=== PATIENT | female | born 1950 | race Caucasian/White ===

== ENCOUNTER → 2018-08-24 | Outpatient (CLI) | payer MEDICARE, SELFPAY ==
[2014-11-22 00:11] VITALS: BMI 33.6
[2018-08-24 12:15] LABS: CPK Total, Creatine Kinase 207 U/L (26-192)
== END | disposition home or self-care (01) ==
LOC: LAB 11:32
PROVIDERS: Family Provider Family Medicine; PCP Family Medicine; Referring Provider Family Medicine; Visit Provider Family Medicine
DX: R07.89 Other chest pain (principal)
CPT/HCPCS: 36415; 82550; 84484

== ENCOUNTER → 2022-02-23 | Outpatient (CLI) | payer MEDICARE, SELFPAY ==
--- NOTE | 2022-02-23 09:10 | RAD_ITS ---
EXAMINATION: Air contrast UPPER GI SERIES INDICATION: Female, 72 years intermittent dysphasia. FLUOROSCOPY TIME (if supplied): (0:42) minutes/seconds. 24 images were obtained. TECHNIQUE: Radiographic and fluoroscopic images of the distal esophagus, stomach, and proximal small intestine were obtained following the oral ingestion of barium. COMPARISON: None. FINDINGS: There is no evidence for organomegaly, abnormal calcifications, or abnormal bowel gas pattern. The psoas margins and flank stripes are normal. Degenerative changes of the lumbar spine. There is evidence of a small hiatal hernia with gastroesophageal reflux. The mucosa of the esophagus, stomach and duodenum is normal in appearance without evidence for stricture, ulceration, mass or diverticulum. No evidence of gastric ulceration or mass lesion. RAD/Upper GI w/BA Swallow IMPRESSION: 1. Small sliding hernia with gastroesophageal reflux. Electronically Signed: Shaka Dozier MD at 10:24 EDT ,
== END | disposition home or self-care (01) ==
PROVIDERS: PCP Family Medicine; Referring Provider Family Medicine; Visit Provider Family Medicine
DX: R13.14 Dysphagia, pharyngoesophageal phase (principal)
CPT/HCPCS: 74246

== ENCOUNTER → 2022-03-20 | Outpatient (CLI) | payer MEDICARE, SELFPAY ==
--- NOTE | 2022-03-20 12:44 | SP.MBSS_ITS ---
Modified Barium Swallow - Patient Information Study Date: 03/20/22 Study Time: 13:50 Direct Billable Minutes: 72 Total Minutes procedure & reportin Diagnosis: Pharyngoesophageal dysphagia (R13.14) Referring Physician: Jorge L Conde Reason for Referral: Objectively assess swallow function, risk for aspiration, and determine recommendations for least restrictive diet textures and compensatory strategies to improve safety of swallow. Medical History: The patient is a 72-year-old female with reported PMH including CVA (~10 years ago), GERD (recently started on Protonix, planned GI consult with Dr. Rao in May), and hx of PNA (~8 years ago). Upper GI completed 02/23/2022, which revealed small sliding hernia with gastroesophageal reflux. She admits to eating and drinking with a quick rate. Her swallowing difficulty is characterized by the sensation of food, especially fast food, getting caught in her throat or upper esophagus. She also reports occasional regurgitation of carbonated drinks. Current Diet Ordered: Regular textures / Thin liquids Dentition: WNL - implants Mental Status: WNL Respiratory Status: Oxygenating on Room Air - Penetration-Aspiration Scale Penetration-Aspiration Scale: OBJECTIVE ASSESSMENT OF SWALLOW FUNCTION (QUANTITATIVE ? PER TRIAL): PENETRATION / ASPIRATION SCALE (RAMIREZ): 1 = does not enter airway 2 = enters airway/above vocal folds/ejected 3 = enters airway/above vocal folds/not ejected 4 = enters airway/contacts vocal folds/ejected 5 = enters airway/contacts vocal folds/not ejected 6 = enters airway/below vocal folds/ejected 7 = enters airway/below vocal folds/not ejected despite effort 8 = enters airway/below vocal folds/no effort VIDEOFLOROSCOPIC SCALE SCORE (RAMIREZ): Grade I = aspiration of material that has penetrated into the laryngeal vestibule, intact cough reflex Grade II = aspiration < 10 % of the bolus, intact cough reflex Grade III = aspiration of < 10 % of the bolus, reduced cough reflex or aspiration of > 10 % of the bolus, intact cough reflex Grade IV = aspiration of > 10 % of the bolus, reduced cough reflex - Penetration-Aspiration Scale Score Thin Liquid via teaspoon Result: 1= does not enter airway Thin Liquid via teaspoon Trial 2 Result: 1= does not enter airway Thin Liquid via small single sip from cup Result: 1= does not enter airway Thin Liquid via sequential sips from cup Result: 1= does not enter airway [place] Thick Liquid via small single sip from cup Result: 1= does not enter airway [place] Thick Liquid via small single sip from cup Result: 1= does not enter airway Pudding with esophageal screen Result: 1= does not enter airway Thin liquid via straw with esophageal screen Result: 1= does not enter airway 1/2 Cookie Result: 1= does not enter airway - Oral Phase Labial Seal: No Labial Escape Tongue Control During Bolus Hold: Posterior escape of less than half of bolus - sequential thin, cookie Bolus Preparation/Mastication: Timely and efficient chewing and mashing Bolus Transport/Lingual Motion: Delayed initiation of tongue motion Oral Residue: Trace residue lining oral structures - Pharyngeal Phase Initiation of Pharyngeal Swallow: Bolus head in pyriforms - sequential thin Soft Palate Elevation: No bolus between soft palate and pharyngeal wall Laryngeal Elevation: Comp. Superior move thyroid cart w/comp. apprx arytenoid cart-epig pet Anterior Hyoid Excursion: Partial anterior movement Epiglottic Movement: Partial inversion Laryngeal Vestibule Closure at Height of Swallow: Complete; no air/contrast in laryngeal vestibule Pharyngeal Stripping Wave: Present - complete Pharyngoesophageal Segment Opening: Complete distension and complete duration; no obstruction of flow Tongue Base Retraction: Trace column of contrast between tongue base & post. pharyngeal wall Pharyngeal Residue: Trace residue within or on pharyngeal structures - Esophageal Phase Esophageal Clearance: Esophageal retention - retention of portion of pudding bolus in upper esophagus - Treatment Strategies Effects of treatment strategies attemped:: Liquid wash = effective in clearing mild esophageal retention of pudding - Diagnosis/Impression Diagnosis: Oropharyngeal swallow function grossly WNL Impression: The patient presents with oropharyngeal swallow function grossly WNL. Posterior loss of sequential sips of thin liquids to pyriforms prior to swallow onset. Mildly decreased anterior hyoid excursion and partial epiglottic inversion; however, the patient has good laryngeal elevation and maintained completed closure of the laryngeal vestibule and airway throughout the study. No aspiration observed. Trace oral and pharyngeal residues after the swallow. Small CP-bar at the level of C5; however, no obstruction of boluses through UES. Min retention of pudding in upper esophagus, which effectively cleared with use of liquid wash. - Recommendations Diet: Regular Textures, Thin Liquids Compensatory Strategies: Small Bites, Small Sips, Slow Rate, Alternate bites/solids and sips/liquids, Sitting upright, Remain sitting upright for 30 minutes after PO intake Recommend Repeat Modified Barium Swallow: No Need for Skilled Speech Therapy Services: No Recommended Referrals: GI Consult - Keep upcoming consult with Dr. Rao Education Completed: 1. Described result of evaluation. - Status Active ST Patient: Active - Contact Information [facility] Speech Therapy:: Anjali Livingston M.A. [employer] Speech-Language Pathologist [facility] [address] [place] [address] [email or web address] [phone] 03/20/22 15:17
== END | disposition home or self-care (01) ==
LOC: RAD 12:41
PROVIDERS: PCP Family Medicine; Referring Provider Family Medicine; Visit Provider Family Medicine
DX: R13.14 Dysphagia, pharyngoesophageal phase (principal)
CPT/HCPCS: 74230; 92611

== ENCOUNTER → 2022-05-29 | Outpatient (CLI) | payer MEDICARE, SELFPAY ==
--- NOTE | 2022-05-29 15:10 | NEURO ---
NCS and/or EMG Patient Report Ordering Doctor: Jorge L Conde DATE OF SERVICE: 05/29/22 Indication: Several episodes of left arm weakness and numbness that would last seconds and spontaneously resolve. No fixed deficits between episodes. Findings: Nerve conduction studies were performed in the right and left upper extremity. The left median motor study recording the abductor pollicis brevis showed a normal amplitude, normal distal latency and normal conduction velocity. The left ulnar motor study recording the abductor digiti minimi showed a normal amplitude, normal distal latency and normal conduction velocity. No conduction block or focal slowing was present across the elbow. The left median sensory response recording digit two showed a normal amplitude, latency and conduction velocity. The left ulnar sensory response recording digit five showed a normal amplitude, latency and conduction velocity. The left radial sensory response recording over the extensor snuff box showed a normal amplitude, latency and conduction velocity. Needle EMG of the left upper extremity muscles was performed. No denervation was seen in any muscle. All motor unit morphology, activation and recruitment patterns were normal. Impression: This is a normal study. There is no electrophysiologic evidence of cervical radiculopathy in either the left upper extremity. In addition, there was no electrophysiologic evidence of median or ulnar entrapment neuropathy, or brachial plexopathy in the left upper extremity. Please note this study cannot exclude weakness due to central causes (e.g. stroke, TIA, etc.). Clinical correlation is recommended. Geovanny Brannon D.O. Multi Select Codes Neurology Neurology Interp Codes: 31183-44 Musc test done w/n test comp (interp) and 80735-37 Nrv cndj tst 5-6 studies (interp)
== END | disposition home or self-care (01) ==
PROVIDERS: PCP Family Medicine; Visit Provider Family Medicine
DX: R20.0 Anesthesia of skin (principal); R20.2 Paresthesia of skin; R29.898 Other symptoms and signs involving the musculoskeletal system
CPT/HCPCS: 95886; 95909

== ENCOUNTER → 2022-06-07 | Outpatient (CLI) | payer MEDICARE, SELFPAY ==
--- NOTE | 2022-06-07 12:59 | CT_ITS ---
STUDY: CT CHEST WITHOUT CONTRAST REASON FOR EXAM: Female, 72 years old. DYSPNEA ON EXERTION. OVER READ ONLY RADIATION DOSAGE (If Supplied By Facility): CTDIvol = ( 31.14 ) mGy, DLP = ( 1024.26 ) mGycm TECHNIQUE: Transaxial imaging was performed without the administration of intravenous contrast material. Individualized dose optimization techniques were used for this CT. COMPARISON: No relevant priors. FINDINGS: CHEST The lungs are normal. There is no demonstrated pleural abnormality. There are calcifications of the coronary arteries. Normal mediastinum. Normal hilar regions. Normal unenhanced pulmonary arteries. There is atherosclerotic calcification of the aortic arch with tortuosity and elongation of the aortic arch and descending thoracic aorta. There are degenerative changes of the thoracic spine. There is no demonstrated abnormality of the visualized upper abdomen. CT/Limited Chest CT Cardiac Only IMPRESSION: The visualized portions of the lungs is unremarkable. Coronary artery calcification. Electronically Signed: Shaka Dozier MD at 15:14 EST ,
[2022-06-07 13:07] VITALS: BP 150/71; PULSE 63; RESP 18; TEMP 35.7; O2SAT 94
[2022-06-07 13:14] VITALS: BMI 37.5
[2022-06-07] MEDS: 0.9% Saline Lock 10 ML Syringe IV (13:22)
[2022-06-07 13:31] VITALS: PULSE 64
[2022-06-07] MEDS: Nitroglycerin SL (ED/IMG/CATH) 0.4 MG TABLET SL (13:31)
[2022-06-07 13:35] LABS: CREATININE FINGERSTICK < 0.9 mg/dL (0.55-1.02); EGFR FINGERSTICK > 60.0000 mL/min (>60)
[2022-06-07 13:37] VITALS: BP 139/76; PULSE 63; RESP 18; O2SAT 93
--- NOTE | 2022-06-07 19:25 | CCTA_ITS ---
CCTA w/Cont Coronary Arteries Date of Study:: 06/07/22 Dyspnea on Exertion Consent:: Per Patient The patient underwent coronary artery CTA with particular attention paid to the coronary arteries for evaluation of the possibility of underlying atherosclerotic coronary artery disease. The patient appeared to tolerate the procedure without obvious complication. The technical adequacy of the procedure is diminished based upon findings compatible with misregistration artifact. LEFT MAIN CORONARY ARTERY: The left main coronary artery is a large vessel giving rise to the left anterior descending and left circumflex coronary artery. The left main coronary artery appears to be patent with proximal mild eccentric nonobstructive calcified plaque. LEFT ANTERIOR DESCENDING CORONARY ARTERY: The left anterior descending coronary artery appears to be a moderate sized vessel coursing to a smaller vessel as it approaches the LV apex. The left anterior descending coronary artery demonstrates proximal to mid mild to moderate eccentric nonobstructive calcified plaque and mid to distal mild eccentric nonobstructive soft plaque. The left anterior descending coronary artery with respect to the distal portions is not well visualized. LEFT CIRCUMFLEX CORONARY ARTERY: The left circumflex coronary artery appears to be a nondominant vessel. The left circumflex coronary appears to be a smaller caliber vessel giving rise to a smaller caliber obtuse marginal branch. The left circumflex coronary artery demonstrates proximal mild eccentric nonobstructive calcified plaque. The mid to distal portions of the left circumflex coronary artery and the obtuse marginal branch are not well visualiz ed. RIGHT CORONARY ARTERY: The right coronary artery appears to be a large dominant vessel. The right coronary artery demonstrates diffuse mild eccentric nonobstructive soft plaque. The right coronary artery midsection appears to demonstrate mild eccentric nonobstructive calcified plaque. The right coronary artery-posterior descending coronary artery system is not well visualized. THORACIC AORTA: The thoracic aorta appears to be patent without obvious atherosclerotic appearing plaque. PULMONARY ARTERY: The main pulmonary artery and proximal portions of the right and left pulmonary artery appear to be patent without obvious filling defect. LEFT ATRIUM/APPENDAGE: The left atrium/appendage appears to be patent without obvious filling defect. MITRAL VALVE: The mitral valve appears to be bileaflet structure. AORTIC VALVE: The aortic valve appears to be a trileaflet structure. LEFT VENTRICLE: The left ventricle appears to demonstrate grossly normal left ventricular size, wall motion, and systolic function. The left ventricular ejection fraction is calculated at 39%. CORONARY CALCIUM SCORE: A coronary calcium score was not obtained. This note was generated using a voice recognition system and there may be incorrect words, spelling or punctuation that were not noted when reviewing the office note prior to saving.
== END | disposition home or self-care (01) ==
PROVIDERS: PCP Family Medicine; Referring Provider Internal Medicine Cardiovascular Disease; Visit Provider Internal Medicine Cardiovascular Disease
DX: R06.02 Shortness of breath (principal); R07.89 Other chest pain
CPT/HCPCS: 75574; 76380; Q9967

== ENCOUNTER 2024-07-10 09:01 | Emergency (ER) | payer MEDICARE, SELFPAY ==
[2024-07-10 09:01] VITALS: BP 148/76; PULSE 79; RESP 16; TEMP 36.8; O2SAT 94; BMI 40.2
--- NOTE | 2024-07-10 09:21 | RAD_ITS ---
PROCEDURE: LEFT ANKLE, THREE VIEWS REASON FOR EXAM: Trauma. Pain TECHNIQUE: 3 views of the left ankle COMPARISON: None FINDINGS: No visible fracture. No suspicious bone lesion. Small plantar calcaneal spur. Normal alignment. Mortise appears intact. No effusion. Soft tissues are unremarkable. RAD/Ankle min 3 Views IMPRESSION: Small plantar calcaneal spur. No acute osseous abnormalities. Reading Location: [place] [address]
--- NOTE | 2024-07-10 09:22 | ED.VIS.FALL ---
HPI HPI - Fall History of Present Illness Chief Complaint: Fall Narrative Narrative: 74-year-old female, past medical history of 2 strokes, on Plavix with minimal residual deficit which includes right arm weakness and occasional speech deficit presents status post mechanical fall yesterday at around 6 PM. This was over 12 hours ago. She states that she twisted her ankle when she fell, and her left side fell into a concrete retaining wall. She denies hitting her head or loss of consciousness, no neck pain. Her brother was outside on the porch and had to help her up. She was able to ambulate up the basement stairs yesterday evening. She took a tramadol with minimal relief. This morning, she continues to have left-sided chest pain that is worse with movement. States occasionally feels short of breath associated with this, but denies other injury. She is able to ambulate on her left ankle with the assistance of a walker. Quite frankly, she states she is here because she wants to make sure she did not break anything. She denies any hematuria, no abdominal pain, no other injuries. She has pain mainly on her left anterior to posterior ribs. [facility] Medical History Hx-TIA (transient ischemic attack) Atypical chest pain SOB (shortness of breath) Trigger middle finger of left hand (~11/11/21) Insomnia COVID-19 (~02/2022) Vitamin D deficiency Ulcer of esophagus VINI (obstructive sleep apnea) Right-sided intracerebral hemorrhage (~07/2012) Mixed hyperlipidemia Left sided sciatica Acute insomnia Generalized OA Fibrocystic breast disease Elevated hemoglobin A1c DDD (degenerative disc disease) Atrial septal defect Arthritis of both knees Restless leg syndrome CAP (community acquired pneumonia) Hyperglycemia Viral hepatitis Acute exacerbation of chronic obstructive pulmonary disease (COPD) Family history of ASCVD Diverticulosis PFO (patent foramen ovale) Home Medications ?Medication ?Instructions ?Recorded ?Last Taken ?Type clopidogrel 75 mg tablet 75 mg PO DAILY 11/22/14 11/21/14 08:00 History acetaminophen 650 mg 1,300 mg PO ONCE PRN pain 05/11/22 Unknown History tablet,extended release cholecalciferol (vitamin D3) 100 100 mcg PO DAILY 05/11/22 Unknown History mcg (4,000 unit) tablet pantoprazole 40 mg tablet,delayed 40 mg PO BID 05/11/22 Unknown History release sertraline 100 mg tablet (Zoloft) 100 mg PO QHS 05/11/22 Unknown History therapeutic multivitamin 1 tab PO DAILY 05/11/22 Unknown History ascorbate calcium (vitamin C) 500 500 mg PO DAILY 05/23/22 Unknown History mg tablet ferrous sulfate 325 mg (65 mg 325 mg PO DAILY 05/23/22 Unknown History iron) tablet vit C 226 mg-vit E 90 mg-copper 2 cap PO DAILY 11/21/22 Unknown History 0.8 mg-zinc oxide-lutein 5 mg capsule (PreserVision Lutein) lovastatin 40 mg tablet 80 mg PO QHS 06/14/23 Unknown History pregabalin 100 mg capsule 100 mg PO TID 06/14/23 Unknown History ropinirole 1 mg tablet 1 mg PO BID PRN restless leg(s) 06/14/23 Unknown History ezetimibe 10 mg tablet 10 mg PO QDAY 07/09/24 Unknown History ramipril 2.5 mg capsule 2.5 mg PO QDAY #90 caps 07/09/24 Unknown Rx calcium 100 mg capsule 100 mg PO DAILY 07/10/24 Unknown History hydrocodone-acetaminophen 5-325mg 1 tab PO Q6H PRN PRN Pain 3 days 07/10/24 Unknown Rx 5mg-325mg #12 TABLETS Allergy/AdvReac Type Severity Reaction Status Date / Time azithromycin Allergy Intermediate Rash Verified 07/10/24 09:05 sulfamethoxazole (From Allergy Intermediate Rash Verified 07/10/24 09:05 Bactrim) trimethoprim (From Bactrim) Allergy Intermediate Rash Verified 07/10/24 09:05 Sulfa (Sulfonamide Allergy Rash Verified 07/10/24 09:05 Antibiotics) atorvastatin AdvReac Intermediate Other Verified 07/10/24 09:05 pravastatin AdvReac Intermediate Other Verified 07/10/24 09:05 Family History Mother Hyperlipidemia Depression Afib Father CVA (cerebral vascular accident), Onset Age: 49 passed Grandmother Cancer renal Surgical History Hx of arthroscopy of right knee (~11/24/19) History of bunionectomy of both great toes (~2003) Hx of tubal ligation (~1994) Hx of section (~1980) History of tonsillectomy (~1955) Social History Smoking Status: Never smoker alcohol intake: current alcohol intake frequency: holidays/special occasions only substance use type: does not use ROS ROS ED ROS Narrative Review of systems positive for left-sided chest wall pain/rib pain. Occasional shortness of breath. No fevers or chills. No hitting of head or loss of consciousness with fall approximately 15 hours ago. Mild left ankle pain worse with weightbearing and movement. EXAM Physical Exam Narrative Exam Narrative: GCS 15. ABCs are intact. Cardiovascular examination reveals a regular rate and rhythm. Lungs are clear to auscultation bilaterally. Chest wall reveals mild tenderness on the anterior to posterior ribs on the left. No crepitance. No noted ecchymosis. Abdomen is soft, nontender, without guarding or rebound. Positive bowel sounds. No lumbar tenderness or vertebral point tenderness, no step-off. Minimal tenderness to palpation left ankle diffusely. No deformity. No palpable Achilles tendon deficit. Const Vital Signs: 07/10/24 09:01 07/10/24 09:28 07/10/24 11:52 Temperature 98.2 F 98.1 F Temperature Source Temporal Pulse Rate 79 93 Respiratory Rate 16 16 Respiratory Effort Normal Non-Labored Respiratory Depth Normal Respiratory Pattern Normal Blood Pressure 148/76 H 159/82 H Blood Pressure Mean 100 107 Pulse Ox 94 93 Oxygen Delivery Method Room Air Room Air MDM MDM MDM Narrative Medical decision making narrative: Differential diagnosis includes but not limited to rib contusion versus fracture versus pneumothorax. She may have more of a left ankle sprain as opposed to fracture clinically. She was given a [place] tablet here for analgesia and CT of the chest was obtained as well as x-rays of the ankle in 3 views. On my independent interpretation of the x-rays of the left ankle, I see no evidence of an acute fracture. I reviewed the radiology report which confirms my independent interpretation. Initially, I did review the radiology report of the CT of the chest and there is no evidence of an acute rib fracture noted. I did receive a call from the radiologist, Dr. Caldwell, who added an addendum that there may be transverse process fractures that are nondisplaced of the T12 and L1 vertebrae. She does have minimal point tenderness in those areas and states that it feels bruised. At this point in time, she will be referred to Dr. Chinchilla regarding her stable transverse process fractures, was written a prescription for 12 [place] tablets, and return instructions reviewed. Disposition is discharged in stable condition. Radiography Diagnostic Testing: Clinical Impression(s) from Imaging Studies Ankle X-Ray 07/10/24 09:21 IMPRESSION: Small plantar calcaneal spur. No acute osseous abnormalities. Reading Location: [place] [address] 07/10/24 09:48 IMPRESSION: 1. areas of subpleural ground-glass opacification in the bilateral lungs may be related to hypoventilatory changes. 2. Calcified granuloma, left lower lobe. 3. Small stationary hiatal hernia. 4. Other nonacute findings detailed above. Reading Location: [place] [address] Discharge Plan Triage Chief Complaint: Fall ED Provider: Stef Ren Dx/Rx/DC Orders Clinical Impression: Fall, Sprain of ankle, left, Fracture of transverse process of lumbar vertebra, Fracture of transverse process of thoracic vertebra Instructions: ED Mechanical Fall, ED Ankle Sprain (Adult), ED Transverse Process Fracture Prescriptions: New hydrocodone-acetaminophen 5-325 mg tablet 1 tab PO Q6H PRN PRN (Reason: Pain) 3 Days Qty: 12 0RF No Action sertraline [Zoloft] 100 mg tablet 100 mg PO QHS pantoprazole 40 mg tablet,delayed release (DR/EC) 40 mg PO BID acetaminophen 650 mg tablet extended release 1,300 mg PO ONCE PRN (Reason: pain) cholecalciferol (vitamin D3) 100 mcg (4,000 unit) tablet 100 mcg PO DAILY therapeutic multivitamin Tablet 1 tab PO DAILY ferrous sulfate 325 mg (65 mg iron) tablet 325 mg PO DAILY ascorbate calcium (vitamin C) 500 mg tablet 500 mg PO DAILY lovastatin 40 mg tablet 80 mg PO QHS PreserVision Lutein 226-90-0.8-5 mg capsule 2 cap PO DAILY ropinirole 1 mg tablet 1 mg PO BID PRN (Reason: restless leg(s)) Patient Comments: TAKE 1 TABLET BY MOUTH NEEDED pregabalin 100 mg capsule 100 mg PO TID Patient Comments: TAKE 1 CAPSULE BY MOUTH IN THE MORNING and 1 capsule at 6 (SIX) IN THE EVENING, and 1 capsule AT BEDTIME ezetimibe 10 mg tablet 10 mg PO QDAY ramipril 2.5 mg capsule 2.5 mg PO QDAY Qty: 90 3RF clopidogrel 75 MG tablet 75 mg PO DAILY Patient Comments: platelet inhibitor calcium 100 mg capsule 100 mg PO DAILY Stand Alone Forms: [facility] Referral Primary Care Provider: Jorge L Conde Referrals: Jayce Chinchilla MD [Med Staff - Active Staff] - 1 Week Jorge L Conde MD [Primary Care Provider] - Activity Restrictions/Additional Instructions: Medication as directed. Return with new or worsening symptoms. Follow-up with orthopedic spine within the next week regarding your transverse process fractures. Print Language: Luxembourgish Disposition Disposition: Home, Self Care Discharge Date/Time: 07/10/24 11:53
[2024-07-10] MEDS: HYDROcodone Bitartrate/Apap 5/325 Tablet PO (09:37)
--- NOTE | 2024-07-10 09:48 | CT_ITS ---
PROCEDURE: CT CHEST WITHOUT CONTRAST REASON FOR EXAM: TRAUMA TO LEFT RIBS. TECHNIQUE: Contiguous axial scans of 2.5 mm slice thicknesses. Sagittal and coronal reconstruction images were obtained. One or more dose reduction techniques were used (e.g., automated exposure control, adjustment of mA and/or kv according to patient size, use of iterative reconstruction technique). COMPARISON: CT dated 06/07/2022. FINDINGS: Lungs and Airways: The lungs are normally expanded and clear. Areas of subpleural ground-glass opacification are noted in the bilateral posterior lower lobes. A 0.8 cm calcified granuloma in the left lower lobe posteriorly, axial image 84. Pleura: No pleural effusion. No pneumothorax. Heart and great vessels: Normal heart size. No pericardial effusion. No aneurysms. Pulmonary artery diameter unremarkable. Coronary Artery Calcifications: Moderate atherosclerotic calcifications. Mediastinum and Renee:: No mediastinal hilar or axillary lymphadenopathy. Upper Abdomen: Small stationary hiatal hernia. Bones: Multilevel spondylosis CT/Chest without Contrast IMPRESSION: 1. areas of subpleural ground-glass opacification in the bilateral lungs may b e related to hypoventilatory changes. 2. Calcified granuloma, left lower lobe. 3. Small stationary hiatal hernia. 4. Other nonacute findings detailed above. Reading Location: [facility]
[2024-07-10 11:52] VITALS: BP 159/82; PULSE 93; RESP 16; TEMP 36.7; O2SAT 93
== END 2024-07-10 11:53 | disposition home or self-care (01) ==
PROVIDERS: Emergency Provider Emergency Medicine; PCP Family Medicine; Visit Provider Emergency Medicine
DX: S32.009A Unspecified fracture of unspecified lumbar vertebra, initial encounter for closed fracture (principal); S22.009A Unspecified fracture of unspecified thoracic vertebra, initial encounter for closed fracture; J44.9 Chronic obstructive pulmonary disease, unspecified; S93.402A Sprain of unspecified ligament of left ankle, initial encounter; E78.2 Mixed hyperlipidemia; Z79.02 Long term (current) use of antithrombotics/antiplatelets; Z86.73 Personal history of transient ischemic attack (TIA), and cerebral infarction without residual deficits; W19.XXXA Unspecified fall, initial encounter
CPT/HCPCS: 71250; 73610; 99282

== ENCOUNTER 2024-11-04 12:47 | Outpatient (RCR) | payer MEDICARE, SELFPAY | END 2024-11-10 23:59 | LOC: NS 12:47 | PROVIDERS: PCP Family Medicine; Visit Provider Obstetrics & Gynecology | DX: Z71.3 Dietary counseling and surveillance (principal); E66.813 Obesity, class 3; Z68.41 Body mass index [BMI] 40.0-44.9, adult | CPT/HCPCS: 97802 ==